=== PATIENT | female | born 1975 | race Caucasian/White ===

== ENCOUNTER 2023-09-09 00:42 | Emergency (ER) | payer OTHER ==
[2023-09-09] MEDS ORDERED: Ondansetron PF 4 MG/2 ML Vial ONE (03:07)
[2023-09-09] MEDS ORDERED: Morphine 4 MG/ML VIAL ONE (03:07)
[2023-09-09] MEDS ORDERED: HYDROcodone/Acetaminophen 10/325 mg Tablet ONE (04:55)
[2023-09-09] MEDS ORDERED: Iopamidol 370 76% 100 ML VIAL ONE (08:52)
== END 2023-09-09 05:02 | disposition home or self-care (01) ==
LOC: ERS 00:42
DX: S20.219A Contusion of unspecified front wall of thorax, initial encounter (principal); S30.1XXA Contusion of abdominal wall, initial encounter; V89.2XXA Person injured in unspecified motor-vehicle accident, traffic, initial encounter
CPT/HCPCS: 71260; 74177; 96374; 96375; J2270; J2405; Q9967

== ENCOUNTER 2023-09-10 21:08 | Emergency (ER) | payer OTHER ==
[2023-09-11] MEDS ORDERED: Ketorolac Tromethamine 30 MG/ML VIAL ONE (00:47)
[2023-09-11] MEDS ORDERED: diphenhydrAMINE 50 MG/ML VIAL ONE (00:47)
[2023-09-11] MEDS ORDERED: Metoclopramide HCl 10 MG/2 ML VIAL ONE (00:47)
== END 2023-09-11 04:53 | disposition home or self-care (01) ==
LOC: ERS 21:08
DX: R51.9 Headache, unspecified (principal); I10 Essential (primary) hypertension; K21.9 Gastro-esophageal reflux disease without esophagitis; Z87.891 Personal history of nicotine dependence
CPT/HCPCS: 70450; 72125; 96374; 96375; J1200; J1885; J2765